=== PATIENT | female | born 1960 | race African-American/Black ===

== ENCOUNTER 2020-03-19 12:09 | Emergency (ER) | payer MEDICAID ==
[~2020-03-19] VITALS: Ht 154.9 cm; Wt 76.7 kg
--- NOTE | 2020-03-19 12:26 | NUR ---
ED Nurse Note: pt ambulated to ED d/t LT eye irritiation noted with redness and itchiness as verbalized by pt. Pt is AOx4, calm and cooperative, vss on ra, afebrile on triage. Placed on RME.
[2020-03-19 12:50] VITALS: BP 149/96
--- NOTE | 2020-03-19 12:51 | Emergency Room Report ---
History of Present Illness General Chief Complaint: Eye Problems Source: Patient Present Illness HPI Patient presents with complaints of bilateral eye discomfort reports mild erythema some discharge symptoms started this morning Patient denies any change in vision Denies any pain to the eye itself denies any headache denies any pressure behind the eye denies any nausea vomiting denies any back or flank pain Patient does have multiple grandkids that she is in contact with otherwise denies any sore throat or other rash Allergies: Coded Allergies: No Known Allergies (Unverified , 03/19/20) COVID-19 Screening Contact w/high risk pt: No Recent Travel to affected area: No Experienced COVID-19 symptoms?: No Patient History Past Medical History: see triage record Reviewed Nursing Documentation: PMH: Agreed; PSxH: Agreed Nursing Documentation-PMH Hx Hypertension: Yes Review of Systems All Other Systems: negative except mentioned in HPI Physical Exam Vital Signs Date Time Temp Pulse Resp B/P (MAP) Pulse Ox O2 Delivery O2 Flow Rate FiO2 03/19/20 12:20 99.0 93 16 149/96 (113) 97 Room Air Sp02 EP Interpretation: reviewed, normal General Appearance: well appearing, no apparent distress Head: normocephalic, atraumatic Eyes: bilateral eye PERRL, bilateral eye EOMI, bilateral eye other - Bilateral conjunctival erythema ENT: EOM grossly intact Neck: supple Respiratory: lungs clear, no respiratory distress, no retraction Cardiovascular #1: regular rate, rhythm Musculoskeletal: normal inspection Neurologic: alert, oriented x3 Psychiatric: normal inspection Skin: no rash Lymphatic: no adenopathy Medical Decision Making Diagnostic Impression: Primary Impression: Conjunctivitis ER Course Patient's exam is consistent with conjunctivitis other differential such as glaucoma foreign body entertained, Patient however does not appear uncomfortable and there is no other pain with the eye itself Clinically and subjectively no obvious Proptosis or sunken eye and patient will have initial conservative outpatient trial Last Vital Signs Date Time Temp Pulse Resp B/P (MAP) Pulse Ox O2 Delivery O2 Flow Rate FiO2 03/19/20 12:20 99.0 93 16 149/96 (113) 97 Room Air Status: improved Disposition: HOME, SELF-CARE Condition: Stable Referrals: NON PHYSICIAN (PCP) Additional Instructions: Patient is provided with the discharge instructions notified to follow up with primary doctor in the next 2-3 days otherwise return to the er with any worsening symptoms. Please note that this report is being documented using DRAGON technology. This can lead to erroneous entry secondary to incorrect interpretation by the dictating instrument. Narciso Mcnamara DO Mar 19, 2020 12:51
[2020-03-19] MEDS ORDERED: GENTAK5 ML BOTH EYES (12:52)
[2020-03-19 13:00] VITALS: BP 149/96
--- NOTE | 2020-03-19 13:00 | NUR ---
ER DISCHARGE NOTE: Pt is cleared to be discharged per ERMD, pt is aox4, on RA with stable vital signs. pt was given dc and prescription instructions, pt was able to verbalize understanding, pt id band removed. pt is able to ambulate with steady gait. pt took all belongings.
== END 2020-03-19 13:00 | disposition home or self-care (01) ==
LOC: EMR 12:31
DX: H10.9 Unspecified conjunctivitis (principal); I10 Essential (primary) hypertension
CPT/HCPCS: 99282

== ENCOUNTER 2020-04-08 06:52 | Emergency (ER) | payer MEDICAID ==
[~2020-04-08] VITALS: Ht 165.1 cm; Wt 77.1 kg
[~2020-04-08 06:52] MED LIST: GENTAK5 ML BOTH EYES
[2020-04-08] MEDS ORDERED: FUROSEMIDE40 MG ORAL (06:59)
--- NOTE | 2020-04-08 07:10 | Emergency Room Report ---
History of Present Illness General Chief Complaint: Vomiting Source: Patient Present Illness HPI 60-year-old female history of gallbladder removal presents with nausea vomiting , diarrhea diffuse generalized achy abdominal pain x1 day no aggravating alleviating factors severity is moderate, constant patient denies any chest pain or shortness of breath no fevers no chills patient reports that this tends to happen when her common bile duct gets enlarged patient presents for evaluation Allergies: Coded Allergies: No Known Allergies (Unverified , 03/19/20) COVID-19 Screening Contact w/high risk pt: No Recent Travel to affected area: No Experienced COVID-19 symptoms?: No COVID-19 Testing performed DISTRIBUTOR ADVERTISING MATERIAL: No Patient History Past Medical History: see triage record Last Menstrual Period: n/a Reviewed Nursing Documentation: PMH: Agreed; PSxH: Agreed Nursing Documentation-PMH Past Medical History: No History, Except For Hx Hypertension: Yes Review of Systems All Other Systems: negative except mentioned in HPI Physical Exam Vital Signs Date Time Temp Pulse Resp B/P (MAP) Pulse Ox O2 Delivery O2 Flow Rate FiO2 04/08/20 06:56 99.7 88 18 179/74 (109) 97 Room Air Sp02 EP Interpretation: reviewed, normal General Appearance: well appearing, no apparent distress, alert Head: normocephalic, atraumatic Eyes: bilateral eye PERRL, bilateral eye EOMI ENT: uvula midline, moist mucus membranes Neck: supple, thyroid normal, supple/symm/no masses Respiratory: lungs clear, no respiratory distress, no retraction, no accessory muscle use Cardiovascular #1: normal peripheral pulses, regular rate, rhythm, no edema, no gallop, no murmur Gastrointestinal: non tender, soft, no guarding, no rebound Musculoskeletal: normal inspection Neurologic: alert, oriented x3 Psychiatric: mood/affect normal Skin: no rash, warm/dry Medical Decision Making Diagnostic Impression: Primary Impression: Viral gastroenteritis ER Course 60-year-old female presents with generalized abdominal pain differential diagnosis includes appendicitis diverticulitis, gastroenteritis Labs unremarkable patient's abdomen is soft nontender no rebound no guarding, Patient given abdominal return precautions CT scan shows enteritis Laboratory Tests Test 04/08/20 07:37 White Blood Count 8.3 K/UL (4.8-10.8) Red Blood Count 4.96 M/UL (4.20-5.40) Hemoglobin 16.0 G/DL (12.0-16.0) Hematocrit 44.0 % (37.0-47.0) Mean Corpuscular Volume 89 FL (80-99) Mean Corpuscular Hemoglobin 32.3 PG (27.0-31.0) H Mean Corpuscular Hemoglobin Concent 36.4 G/DL (32.0-36.0) H Red Cell Distribution Width 12.4 % (11.6-14.8) Platelet Count 232 K/UL (150-450) Mean Platelet Volume 7.4 FL (6.5-10.1) Neutrophils (%) (Auto) 83.6 % (45.0-75.0) H Lymphocytes (%) (Auto) 11.5 % (20.0-45.0) L Monocytes (%) (Auto) 4.1 % (1.0-10.0) Eosinophils (%) (Auto) 0.0 % (0.0-3.0) Basophils (%) (Auto) 0.9 % (0.0-2.0) Prothrombin Time 11.7 SEC (9.30-11.50) H Prothrombin Time INR 1.1 (0.9-1.1) Activated Partial Thromboplast Time 26 SEC (23-33) Urine Color Pale yellow Urine Appearance Clear Urine pH 7 (4.5-8.0) Urine Specific [place] 1.010 (1.005-1.035) Urine Protein 4+ (NEGATIVE) H Urine Glucose (UA) Negative (NEGATIVE) Urine Ketones 2+ (NEGATIVE) H Urine Blood 3+ (NEGATIVE) H Urine Nitrite Negative (NEGATIVE) Urine Bilirubin Negative (NEGATIVE) Urine Urobilinogen Normal MG/DL (0.0-1.0) Urine Leukocyte Esterase Negative (NEGATIVE) Urine RBC 2-4 /HPF (0 - 2) H Urine WBC 0-2 /HPF (0 - 2) Urine Squamous Epithelial Cells Moderate /LPF (NONE/OCC) H Urine Bacteria Few /HPF (NONE) Sodium Level 142 MMOL/L (136-145) Potassium Level 3.8 MMOL/L (3.5-5.1) Chloride Level 100 MMOL/L (98-107) Carbon Dioxide Level 27 MMOL/L (21-32) Anion Gap 15 mmol/L (5-15) Blood Urea Nitrogen 7 mg/dL (7-18) Creatinine 0.8 MG/DL (0.55-1.30) Estimated Glomerular Filtration Rate > 60 mL/min (>60) Glucose Level 129 MG/DL (74-106) H Calcium Level 10.2 MG/DL (8.5-10.1) H Total Bilirubin 0.7 MG/DL (0.2-1.0) Aspartate Amino Transferase (AST) 22 U/L (15-37) Alanine Aminotransferase (ALT) 20 U/L (12-78) Alkaline Phosphatase 92 U/L (46-116) Troponin I 0.000 ng/mL (0.000-0.056) Total Protein 9.4 G/DL (6.4-8.2) H Albumin 4.7 G/DL (3.4-5.0) Globulin 4.7 g/dL Albumin/Globulin Ratio 1.0 (1.0-2.7) Lipase 190 U/L (73-393) Urine Opiates Screen Negative (NEGATIVE) Urine Barbiturates Screen Negative (NEGATIVE) Phencyclidine (PCP) Screen Negative (NEGATIVE) Urine Amphetamines Screen Negative (NEGATIVE) Urine Benzodiazepines Screen Negative (NEGATIVE) Urine Cocaine Screen Negative (NEGATIVE) Urine Marijuana (THC) Screen Positive (NEGATIVE) H Serum Alcohol < 3 mg/dL EKG Diagnostic Results EKG Time: 07:06 EP Interpretation: NSR, rate 65, QTc 468, no acute ST elevations, normal axis Rhythm Strip Diag. Results Rhythm Strip Time: 07:10 EP Interpretation: yes Rate: 96 Rhythm: NSR, no PVC's, no ectopy CT/MRI/US Diagnostic Results CT/MRI/US Diagnostic Results : Impression Procedure: CT Abdomen Pelvis w/Contrast EXAM: CT Abdomen and Pelvis With Intravenous Contrast CLINICAL HISTORY: ABD PAIN TECHNIQUE: Axial computed tomography images of the abdomen and pelvis with intravenous contrast. CTDI is 9.8 mGy and DLP is 455.5 mGy-cm. One or more of the following dose reduction techniques were used: automated exposure control, adjustment of the mA and/or kV according to patient size, use of iterative reconstruction technique. COMPARISON: None FINDINGS: Lung bases: Mild bibasilar atelectasis. Heart: Borderline size of the heart. ABDOMEN: Liver: Unremarkable. No mass. Gallbladder and bile ducts: Prior cholecystectomy. Probable postcholecystectomy ductal ectasia. Pancreas: Unremarkable. No mass. No ductal dilation. Spleen: Unremarkable. No splenomegaly. Adrenals: Unremarkable. No mass. Kidneys and ureters: No hydronephrosis or obstructing stone. Stomach and bowel: Mildly prominent fluid and gas-filled small bowel loops are nonspecific but may represent enteritis or ileus in the appropriate clinical setting. Diverticulosis without definite evidence of diverticulitis. Mild prominence of the shin of the colon are likely secondary to under distention. PELVIS: Appendix: No findings to suggest acute appendicitis. Bladder: Unremarkable. No mass. Reproductive: Unremarkable as visualized. ABDOMEN and PELVIS: Intraperitoneal space: Unremarkable. No free air. No significant fluid collection. Bones/joints: Degenerative changes of the spine. No acute fracture. No dislocation. Soft tissues: Small fat-containing umbilical hernia. Vasculature: Unremarkable. No abdominal aortic aneurysm. Lymph nodes: Unremarkable. No enlarged lymph nodes. IMPRESSION: Mildly prominent fluid and gas-filled small bowel loops are nonspecific but may represent enteritis or ileus in the appropriate clinical setting. Dictated By: Hiro Moise MD Electronically Signed By: Hiro Moise MD Signed Date/Time 04/08/20 1004 CC: Jose Raul Baires MD Last Vital Signs Date Time Temp Pulse Resp B/P (MAP) Pulse Ox O2 Delivery O2 Flow Rate FiO2 04/08/20 06:56 99.7 88 18 179/74 (109) 97 Room Air Disposition: HOME, SELF-CARE Condition: Stable Scripts Ondansetron (Zofran) 4 Mg Tablet 4 MG ORAL Q8H PRN for Nausea & Vomiting, #10 TAB 0 Refills Prov: Jose Raul Baires MD 04/08/20 Referrals: [facility] Patient Instructions: Viral Gastroenteritis, Adult, [id number] Additional Instructions: The patient was provided with discharge instructions, notified to follow-up with a primary care doctor and or specialist in the next 24-48 hours, and to return to the ED if they have worsening of their symptoms. Please note that this report is being documented using Embedded Chat technology. This can lead to erroneous entry secondary to incorrect interpretation by the dictating instrument. Jose Raul Baires MD April 08, 2020 07:10
[2020-04-08 07:15] VITALS: BP 179/74
[2020-04-08] MEDS ORDERED: Omnipaque-300 100ml vial INJ PRN (07:15)
[2020-04-08] MEDS ORDERED: Morphine Sulfate 4mg/ml Inj (IV USE ONLY) IVP ONE ×2 (07:15→10:45)
--- NOTE | 2020-04-08 07:20 | NUR ---
ED Nurse Note: Patient walked into ED c/o vomiting and abdominal pain since last night. Reports of having 11 episodes of vomit. Patient presented resstless, c/o pain 09/02, AAo x4, VSS at this time.
[2020-04-08] MEDS ORDERED: Carvedilol 6.25mg Tab ORAL ONE (07:30)
--- NOTE | 2020-04-08 07:35 | NUR ---
ED Nurse Note: IV access established on left forearm 20 ga, blood and urine specimen collected, sent down
[2020-04-08 07:56] LABS: BASOPHILS % (AUTO) 0.9 % (0.0-2.0); LYMPHOCYTES % (AUTO) 11.5 % (20.0-45.0); MEAN CORPUSCULAR VOLUME 89 FL (80-99); MONOCYTES % (AUTO) 4.1 % (1.0-10.0); NEUTROPHILS % (AUTO) 83.6 % (45.0-75.0); PLATELET COUNT 232 K/UL (150-450); RED BLOOD COUNT 4.96 M/UL (4.20-5.40); RED CELL DISTRIBUTION WIDTH 12.4 % (11.6-14.8); WHITE BLOOD COUNT 8.3 K/UL (4.8-10.8)
[2020-04-08 07:59] LABS: APPEARANCE,URINE CLEAR; BILIRUBIN, URINE NEGATIVE (NEGATIVE); COLOR,URINE PALE YELLOW; GLUCOSE, URINE (UA) NEGATIVE (NEGATIVE); KETONES,URINE 2+ (NEGATIVE); LEUKOCYTE ESTERASE ,URINE NEGATIVE (NEGATIVE); NITRITE,URINE NEGATIVE (NEGATIVE); PH,URINE 7 (4.5-8.0); PROTEIN,URINE 4+ (NEGATIVE); UROBILINOGEN,URINE NORMAL MG/DL (0.0-1.0)
[2020-04-08 08:03] LABS: INR 1.1 (0.9-1.1)
[2020-04-08 08:06] LABS: ANION GAP 15 mmol/L (5-15); BLOOD UREA NITROGEN 7 mg/dL (7-18); CALCIUM 10.2 MG/DL (8.5-10.1); CARBON DIOXIDE 27 MMOL/L (21-32); CHLORIDE 100 MMOL/L (98-107); CREATININE 0.8 MG/DL (0.55-1.30); POTASSIUM 3.8 MMOL/L (3.5-5.1); SODIUM 142 MMOL/L (136-145)
[2020-04-08 08:12] LABS: ALANINE AMINOTRANSFERASE 20 U/L (12-78); ALBUMIN 4.7 G/DL (3.4-5.0); ALKALINE PHOSPHATASE 92 U/L (46-116); ASPARTATE AMINO TRANSFERASE 22 U/L (15-37); BILIRUBIN,TOTAL 0.7 MG/DL (0.2-1.0)
--- NOTE | 2020-04-08 08:45 | NUR ---
ED Nurse Note: patient was taken for CT
--- NOTE | 2020-04-08 08:56 | NUR ---
ED Nurse Note: Patient is back from CT
--- NOTE | 2020-04-08 10:05 | Diagnostic Imaging Report ---
EXAM: CT Abdomen and Pelvis With Intravenous Contrast CLINICAL HISTORY: ABD PAIN TECHNIQUE: Axial computed tomography images of the abdomen and pelvis with intravenous contrast. CTDI is 9.8 mGy and DLP is 455.5 mGy-cm. One or more of the following dose reduction techniques were used: automated exposure control, adjustment of the mA and/or kV according to patient size, use of iterative reconstruction technique. COMPARISON: None FINDINGS: Lung bases: Mild bibasilar atelectasis. Heart: Borderline size of the heart. ABDOMEN: Liver: Unremarkable. No mass. Gallbladder and bile ducts: Prior cholecystectomy. Probable postcholecystectomy ductal ectasia. Pancreas: Unremarkable. No mass. No ductal dilation. Spleen: Unremarkable. No splenomegaly. Adrenals: Unremarkable. No mass. Kidneys and ureters: No hydronephrosis or obstructing stone. Stomach and bowel: Mildly prominent fluid and gas-filled small bowel loops are nonspecific but may represent enteritis or ileus in the appropriate clinical setting. Diverticulosis without definite evidence of diverticulitis. Mild prominence of the shin of the colon are likely secondary to under distention. PELVIS: Appendix: No findings to suggest acute appendicitis. Bladder: Unremarkable. No mass. Reproductive: Unremarkable as visualized. ABDOMEN and PELVIS: Intraperitoneal space: Unremarkable. No free air. No significant fluid collection. Bones/joints: Degenerative changes of the spine. No acute fracture. No dislocation. Soft tissues: Small fat-containing umbilical hernia. Vasculature: Unremarkable. No abdominal aortic aneurysm. Lymph nodes: Unremarkable. No enlarged lymph nodes. IMPRESSION: Mildly prominent fluid and gas-filled small bowel loops are nonspecific but may represent enteritis or ileus in the appropriate clinical setting.
[2020-04-08] MEDS ORDERED: ZOFRAN4 MG ORAL (10:53)
--- NOTE | 2020-04-08 11:00 | NUR ---
ED Nurse Note: Patient refused pain meds, stated it's 12/03 and I think i do not need it.
--- NOTE | 2020-04-08 11:02 | NUR ---
ER DISCHARGE NOTE: Patient is cleared to be discharged per ERMD, pt is aox4, on room air, with stable vital signs. pt was given dc and prescription instructions, pt was able to verbalize understanding, pt id band and iv site removed without complications. pt is able to ambulate with steady gait. pt took all belongings.
[2020-04-08 11:06] VITALS: BP 205/98
== END 2020-04-08 11:07 | disposition home or self-care (01) ==
LOC: EMR 07:14
DX: A08.4 Viral intestinal infection, unspecified (principal); I10 Essential (primary) hypertension; Z90.49 Acquired absence of other specified parts of digestive tract; K42.9 Umbilical hernia without obstruction or gangrene; K57.90 Diverticulosis of intestine, part unspecified, without perforation or abscess without bleeding
CPT/HCPCS: 36415; 74177; 80053; 80307; 81003; 83690; 84484; 85025; 85610; 85730; 93005; 96361; 96374; 96375; 96376; G0480; J2270; J2405; J7030; Q9967; S0028; Z7502; 99284